=== PATIENT | male | born 2005 | race Two or more races ===

== ENCOUNTER 2024-12-07 11:25 | Emergency (ER) | payer SELFPAY ==
[2024-12-07] MEDS ORDERED: Boostrix 0.5 ML (Tdap) VIAL (>/=7 yrs of age) ONE (12:01)
[2024-12-07] MEDS ORDERED: Bacitracin 1 PK ONE (12:01)
== END 2024-12-07 13:00 | disposition home or self-care (01) ==
LOC: NAV ERS 11:25
DX: S60.511A Abrasion of right hand, initial encounter (principal); V18.2XXA Unspecified pedal cyclist injured in noncollision transport accident in nontraffic accident, initial encounter
CPT/HCPCS: 90471; 90715